=== PATIENT | male | born 1930 | race Two or more races ===

== ENCOUNTER 2017-03-21 11:29 | Emergency (ER) | payer MEDICARE, OTHER ==
[~2017-03-21] VITALS: Ht 175.3 cm; Wt 72.6 kg
[2017-03-21 12:00] VITALS: BP 132/60
--- NOTE | 2017-03-21 12:52 | Emergency Room Report ---
History of Present Illness General Chief Complaint: Abdominal Pain Source: Patient Present Illness HPI Patient is a 86-year-old male who presented after increased vomiting. This reported having increased abdominal discomfort. Patient recently been treated for a fracture to his left upper extremity fracture placed in a splint. He reports having intermittent episodes of vomiting after eating.patient been pain medications. He denies prior medical history. He denies other problems. He reports havingSome difficulty with both solids and liquids. Allergies: Coded Allergies: No Known Allergies (Unverified , 03/21/17) Patient History Past Medical History: see triage record Reviewed Nursing Documentation: PMH: Agreed, PSxH: Agreed Nursing Documentation-PMH Past Medical History: No Stated History Review of Systems All Other Systems: negative except mentioned in HPI Physical Exam Vital Signs Date Time Temp Pulse Resp B/P (MAP) Pulse Ox O2 Delivery O2 Flow Rate FiO2 03/21/17 11:40 97.9 101 20 133/74 99 Room Air Sp02 EP Interpretation: reviewed, normal General Appearance: normal inspection, well appearing, no apparent distress, alert, GCS 15 Head: atraumatic ENT: normal ENT inspection, hearing grossly normal, normal voice Neck: normal inspection, full range of motion, supple, no bony tend Respiratory: normal inspection, lungs clear, normal breath sounds, no respiratory distress, no retraction, no wheezing Cardiovascular #1: regular rate, rhythm, no edema Gastrointestinal: normal inspection, normal bowel sounds, non tender, soft, no guarding, no hernia Genitourinary: no CVA tenderness Musculoskeletal: normal inspection, back normal, normal range of motion, other Neurologic: normal inspection, alert, responsive, speech normal Psychiatric: normal inspection, judgement/insight normal, mood/affect normal Skin: normal inspection, normal color, no rash Medical Decision Making Diagnostic Impression: Primary Impression: Abdominal pain Additional Impressions: Leukocytosis Hiatal hernia Cholelithiasis Adenopathy Prostatic hypertrophy ER Course Patient presented for abdominal pain. Differential diagnoses included ischemic bowel, appendicitis, perforated viscus, abdominal aortic aneurysm, inferior myocardial infarction, viral gastroenteritis Because of complexity of patient's case laboratory testing and imaging studies were ordered. The patient noted have elevated white blood count. The patient started on empiric IV antibiotics for urinary infection. Patient was discussed with Dr. Glasgow from [facility] for possible transfer. Patient was started on IV fluids. Labs Test 03/21/17 12:40 03/21/17 13:50 White Blood Count 22.0 K/UL (4.8-10.8) Red Blood Count 5.09 M/UL (4.70-6.10) Hemoglobin 16.2 G/DL (14.2-18.0) Hematocrit 50.1 % (42.0-52.0) Mean Corpuscular Volume 98 FL (80-99) Mean Corpuscular Hemoglobin 31.9 PG (27.0-31.0) Mean Corpuscular Hemoglobin Concent 32.4 G/DL (32.0-36.0) Red Cell Distribution Width 11.9 % (11.6-14.8) Platelet Count 344 K/UL (150-450) Mean Platelet Volume 6.8 FL (6.5-10.1) Neutrophils (%) (Auto) % (45.0-75.0) Lymphocytes (%) (Auto) % (20.0-45.0) Monocytes (%) (Auto) % (1.0-10.0) Eosinophils (%) (Auto) % (0.0-3.0) Basophils (%) (Auto) % (0.0-2.0) Differential Total Cells Counted 100 Neutrophils % (Manual) 86 % (45-75) Lymphocytes % (Manual) 9 % (20-45) Monocytes % (Manual) 5 % (1-10) Eosinophils % (Manual) 0 % (0-3) Basophils % (Manual) 0 % (0-2) Band Neutrophils 0 % (0-8) Platelet Estimate Adequate Platelet Morphology Normal Red Blood Cell Morphology Normal Urine Color Yellow Urine Appearance Slightly cloudy Urine pH 5 (4.5-8.0) Urine Specific [place] 1.020 (1.005-1.035) Urine Protein 2+ (NEGATIVE) Urine Glucose (UA) Negative (NEGATIVE) Urine Ketones 3+ (NEGATIVE) Urine Occult Blood 3+ (NEGATIVE) Urine Nitrite Negative (NEGATIVE) Urine Bilirubin 1+ (NEGATIVE) Urine Ictotest Negative Urine Urobilinogen 1 MG/DL (0.0-1.0) Urine Leukocyte Esterase 1+ (NEGATIVE) Urine RBC 2-4 /HPF (0 - 0) Urine WBC 2-4 /HPF (0 - 0) Urine Squamous Epithelial Cells Few /LPF (NONE/OCC) Urine Bacteria Few /HPF (NONE) Sodium Level 140 mEQ/L (135-145) Potassium Level 4.4 mEQ/L (3.4-4.9) Chloride Level 99 mEQ/L (98-107) Carbon Dioxide Level 29 mEQ/L (20-30) Anion Gap 12 (5-15) Blood Urea Nitrogen 15 mg/dL (7-23) Creatinine 1.0 mg/dL (0.7-1.2) Estimat Glomerular Filtration Rate mL/min (>60) Glucose Level 131 mg/dL (74-106) Calcium Level 9.1 mg/dL (8.6-10.2) Total Bilirubin 1.6 mg/dL (0.0-1.2) Direct Bilirubin 0.5 mg/dL (0.1-0.3) Aspartate Amino Transf (AST/SGOT) 24 U/L (5-40) Alanine Aminotransferase (ALT/SGPT) 12 U/L (3-41) Alkaline Phosphatase 67 U/L (40-129) Total Protein 7.4 g/dL (6.6-8.7) Albumin 3.5 g/dL (3.5-5.2) Globulin 3.9 g/dL Albumin/Globulin Ratio 0.8 (1.0-2.7) Lipase 15 U/L (< 60) Lactic Acid Level 1.90 mmol/L (0.66-2.22) Last Vital Signs Date Time Temp Pulse Resp B/P (MAP) Pulse Ox O2 Delivery O2 Flow Rate FiO2 03/21/17 12:00 99.2 80 22 132/60 98 Room Air Status: unchanged Disposition: XFER SHT-TRM HOSP Condition: Serious Referrals: [facility],REFERRING (PCP) Jl Bonilla Mar 21, 2017 12:52
[2017-03-21 13:00] VITALS: BP 130/54
[2017-03-21 13:09] LABS: ALANINE AMINOTRANSFERASE 12 U/L (3-41); ALBUMIN/GLOBULIN RATIO 0.8 (1.0-2.7); ANION GAP 12 (5-15); APPEARANCE,URINE SLIGHTLY CLOUDY; ASPARTATE AMINO TRANSFERASE 24 U/L (5-40); CALCIUM 9.1 mg/dL (8.6-10.2); CARBON DIOXIDE 29 mEQ/L (20-30); CHLORIDE 99 mEQ/L (98-107); HEMOLYSIS 3; KETONES,URINE 3+ (NEGATIVE); LEUKOCYTE ESTERASE ,URINE 1+ (NEGATIVE); LIPASE 15 U/L (< 60); MEAN CORPUSCULAR HEMOGLOBIN 31.9 PG (27.0-31.0); MEAN CORPUSCULAR HGB CONC 32.4 G/DL (32.0-36.0); MEAN CORPUSCULAR VOLUME 98 FL (80-99); MEAN PLATELET VOLUME 6.8 FL (6.5-10.1); NITRITE,URINE NEGATIVE (NEGATIVE); PH,URINE 5 (4.5-8.0); PLATELET COUNT 344 K/UL (150-450); POTASSIUM 4.4 mEQ/L (3.4-4.9); PROTEIN,URINE 2+ (NEGATIVE); RED BLOOD COUNT 5.09 M/UL (4.70-6.10); RED CELL DISTRIBUTION WIDTH 11.9 % (11.6-14.8); SODIUM 140 mEQ/L (135-145); TOTAL PROTEIN 7.4 g/dL (6.6-8.7); UROBILINOGEN,URINE 1 MG/DL (0.0-1.0)
--- NOTE | 2017-03-21 13:13 | Diagnostic Imaging Report ---
Indication: SOB Technique: One view of the chest Comparison: none Findings: Lungs and pleural space are clear. Heart is borderline enlarged. The aorta is tortuous. Impression: No acute process Borderline cardiomegaly
[2017-03-21 13:15] LABS: BACTERIA,URINE FEW /HPF; SQUAMOUS EPITHELIAL CELL,UR FEW /LPF (NONE/OCC)
[2017-03-21 13:17] LABS: ICTOTEST NEGATIVE
[2017-03-21 13:22] LABS: BILIRUBIN,DIRECT 0.5 mg/dL (0.1-0.3)
[2017-03-21 13:39] LABS: BAND NEUTROPHILS % (MANUAL) 0 % (0-8); BASOPHILS % (MANUAL) 0 % (0-2); EOSINOPHILS % (MANUAL) 0 % (0-3); LYMPHOCYTES % (MANUAL) 9 % (20-45); NEUTROPHILS % (MANUAL) 86 % (45-75); PLATELET ESTIMATE ADEQUATE; PLATELET MORPHOLOGY NORMAL; TOTAL CELLS COUNTED 100
[2017-03-21 14:00] VITALS: BP 133/58
--- NOTE | 2017-03-21 14:24 | Diagnostic Imaging Report ---
Clinical Indication: 86-year-old male with increased vomiting and abdominal discomfort Technique: No oral contrast utilized, per emergency room physician request IV administration nonionic contrast. Venous phase spiral acquisition obtained through the abdomen and pelvis. Multiplanar reconstructions were generated. Total dose length product 772 mGycm. CTDIvol(s) 16 mGy. Dose reduction achieved using automated exposure control Comparison: None Findings: The appendix is normal. There is colonic diverticulosis. No evidence of diverticulitis. No small bowel distention. There is a large hiatal hernia. There is questionable thickening of the gastric wall, although this is likely an artifact of under distention. There is a mass within the fat surrounding the hiatal hernia, adjacent to the gastric fundus, on the right, measuring 18 mm long axis dimension. A similar 6 mm mass is seen on the left side of the gastric fundus within the hernia sac. A third similar lesion abuts the gastric body on the left, is immediately contiguous with it, measures 2 cm in diameter. The duodenum is unremarkable. Numerous prominent lesser sac nodes are demonstrated. No free or loculated intraperitoneal air or fluid. There is a tiny fat-containing umbilical hernia. The gallbladder contains high attenuation material dependently within the fundus. This may indicate sludge, milk of calcium bile, or small stones. Liver demonstrates a subtle 12 mm low-attenuation lesion in segment 4B the anterior periphery. There is a subcentimeter low-attenuation lesion medially within segment 8. Unremarkable bile ducts. The pancreas is somewhat atrophic. There is an accessory splenule. The left adrenal demonstrates a 15 mm diameter fat attenuation mass. There is also an 8 mm somewhat low-attenuation but nonspecific mass in the upper pole of the left adrenal as well. The right adrenal is unremarkable. The right kidney is unremarkable. The left kidney demonstrates a 4 mm lower pole calyceal calculus. There is a subcentimeter cortical lesion which is too small to characterize. No ureteral calculi demonstrated. No hydronephrosis or hydroureter. The prostate is markedly enlarged, heterogeneous, measures 5 cm transverse by 5.2 cm AP by 6.5 cm craniocaudad, protrudes well into the bladder floor. No pelvic mass or adenopathy otherwise. The included lung bases demonstrate some linear scarring on the right. Bones demonstrate degenerative spondylosis changes. Impression: No definite acute abnormality Large paraesophageal hiatal hernia Gastric wall thickening. Probably artifact of under distention, but wall thickening from neoplasm or gastritis cannot excludable Multiple nodules in the perigastric fat. This is worrisome for adenopathy Gallbladder sludge, milk of calcium bile, versus multiple small calculi Subtle 12 mm low-attenuation lesion in segment 4B of the liver. Possibly an area of focal fatty infiltration given the location somewhat near the falciform ligament. 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 Most likely on the basis of prostatic hypertrophy, neoplasm not excludable Small left renal subcentimeter low-attenuation lesion, too small to characterize, most likely benign simple cyst Other findings as noted, including degenerative spondylosis, linear basilar pulmonary scarring on the right, small fat-containing umbilical hernia, mild pancreatic atrophy, accessory splenule The CT scanner at [facility] is accredited by the [employer] and the scans are performed using protocols designed to limit radiation exposure to as low as reasonably achievable to attain images of sufficient resolution adequate -- for diagnostic evaluation.
[2017-03-21] MEDS ORDERED: Ampicillin/Sulbactam Sod 3 GM in NS 110 ML IVPB ONE (14:30)
[2017-03-21] MEDS ORDERED: Unasyn 3gm Inj ONE (14:40)
[2017-03-21] MEDS ORDERED: NKM (15:13)
[2017-03-21 16:00] VITALS: BP 147/68
[2017-03-21 17:37] VITALS: BP 147/68
[2017-03-21 18:00] VITALS: BP 143/72
== END 2017-03-21 18:00 | disposition short-term general hospital (02) ==
LOC: EMR 11:50
DX: R10.9 Unspecified abdominal pain (principal); D72.829 Elevated white blood cell count, unspecified; K44.9 Diaphragmatic hernia without obstruction or gangrene; K80.20 Calculus of gallbladder without cholecystitis without obstruction; R59.0 Localized enlarged lymph nodes; N40.0 Benign prostatic hyperplasia without lower urinary tract symptoms
CPT/HCPCS: 36415; 71010; 74177; 80053; 81003; 82248; 83605; 83690; 85007; 85025; 87040; 96361; 96374; 99285; J0295; J2405; Q9967